=== PATIENT | female | born 1970 | race Caucasian/White ===

== ENCOUNTER 2016-06-26 08:47 | Emergency (ER) | payer BC, OTHER ==
[~2016-06-26] VITALS: Ht 162.6 cm; Wt 72.6 kg
[2016-06-26 09:21] LABS: Basophils # (auto) 0 uL; Basophils % (auto) 0.4 % (0.0-2.0); DEFINITIVE VIEW TRANSMISSION; Eosinophils # (auto) 0 uL; Eosinophils % (auto) 0.6 % (0.0-7.0); Hematocrit 33.9 % (36.0-46.0); Hemoglobin 10.5 g/dL (12.2-16.2); Lymphocytes # (auto) 1.3 uL; Lymphocytes % (auto) 16.3 % (10.0-50.0); Mean Corpuscular Volume 77.4 fL (80.0-100.0); Mean Platelet Volume 7.6 fL (7.4-10.4); Monocytes # (auto) 0.5 uL; Neutrophils # (auto) 5.9 uL; Neutrophils % (auto) 75.7 % (37.0-80.0); Platelet Count (auto) 313 10^3/uL (140-450); Red Cell Distribution Width 15.3 % (11.6-16.0); White Blood Cell 7.7 10^3/uL (4.4-10.8)
[2016-06-26 09:47] LABS: Albumin 4.1 g/dL (3.4-5.0); BUN/Creatinine Ratio 8.6; Bilirubin, Total 0.2 mg/dL (0.2-1.0); Calcium 8.8 mg/dL (8.5-10.1); Magnesium 1.9 mg/dL (1.6-2.6); Potassium 3.5 mmol/L (3.5-5.1); Total Protein 7.2 g/dL (6.4-8.2)
[2016-06-26 10:27] LABS: Urine Bilirubin Negative (Negative); Urine Blood Negative /uL (Negative); Urine Color Colorless (Yellow); Urine Glucose TRACE mg/dL (Normal); Urine Nitrite Negative (Negative); Urine RBC <1 /hpf (0 - 4); Urine Squamous Epithelial Cell FEW /hpf (<5); Urine Urobilinogen Normal (Negative); Urine pH 6.5 (5.0-8.0)
[2016-06-26 10:33] LABS: Urine Ketone 1+ (Negative)
[2016-06-26] MEDS ORDERED: SODIUM CHLORIDE 0.9% 2,000 ML IV ONE (10:45)
[2016-06-26] MEDS ORDERED: DILTIAZEM HCL 25 MG/5 ML VIAL IV ONE (11:45)
[2016-06-26] MEDS ORDERED: ASPirin 81 mg TAB PO ONE (11:45)
[2016-06-26 14:44] VITALS: BP 127/68
== END 2016-06-26 15:20 | disposition home or self-care (01) ==
LOC: ER 08:47
DX: I47.1 Supraventricular tachycardia (principal); F43.0 Acute stress reaction; E03.2 Hypothyroidism due to medicaments and other exogenous substances; R73.9 Hyperglycemia, unspecified; D50.9 Iron deficiency anemia, unspecified; Z90.89 Acquired absence of other organs; Z88.6 Allergy status to analgesic agent
CPT/HCPCS: 36415; 80053; 81001; 81025; 82962; 83735; 84443; 84484; 85025; 85379; 93005; 94761; 96360; 99285; G0434; J7030